=== PATIENT | male | born 1965 | race Caucasian/White ===

== ENCOUNTER 2017-01-01 10:59 | Emergency (ER) | payer SELFPAY ==
[2017-01-01] MEDS ORDERED: Lidocaine 1% w/Epinephrine 1:100K 30 ML VIAL ONE (11:36)
[2017-01-01 12:00] LABS: #Basophils 0.1 thou/uL (0.0-0.2); #Eosinphils 0.1 thou/uL (0.0-0.7); #Lymphocytes 2.9 thou/uL (1.20-3.40); #Monocytes 0.7 thou/uL (0.11-0.59); #Neutrophils 4.4 thou/uL (1.40-6.50); %Basophils 1.1 % (0.0-1.0); %Eosinophils 1.6 % (0.0-10.0); %Lymphocytes 35.1 % (21.0-51.0); %Neutrophils 54.1 % (42.0-75.0); Hemoglobin 15.3 g/dL (14.0-18.0); Mean Corpuscular Hemoglobin 29.5 pg (27.0-31.0); Mean Corpuscular Volume 86.8 fl (80.0-94.0); Platelet Count 312 thou/uL (130-400); RBC Distribution Width 11.7 % (11.5-14.5); White Blood Cell (WBC) Count 8.2 thou/uL (4.8-10.8)
[2017-01-01] MEDS ORDERED: Clindamycin/D5W 600 mg/50 ml Premix Bag ONE (12:14)
[2017-01-01] MEDS ORDERED: Adacel (T-DAP) 0.5 ML VIAL ONE (12:14)
[2017-01-01] MEDS ORDERED: Clindamycin 150 MG CAP ONE (12:24)
== END 2017-01-01 12:27 | disposition home or self-care (01) ==
LOC: BURERS 10:59
DX: M70.22 Olecranon bursitis, left elbow (principal); M13.80 Other specified arthritis, unspecified site; F17.220 Nicotine dependence, chewing tobacco, uncomplicated
CPT/HCPCS: 20605; 36415; 85025; 87070; 87205; 90471; 90715; J2001; J3490

== ENCOUNTER 2017-04-07 10:37 | Emergency (ER) | payer SELFPAY ==
--- NOTE | 2017-04-07 11:27 | RAD ---
RADIOGRAPH RIGHT ANKLE 3 VIEWS: DATE: 04/07/17. HISTORY: A 51-year-old male status post right ankle twisting injury 2 weeks ago with persistent pain. COMPARISON: None. FINDINGS: Visible only on the frontal view, there is a well-corticated approximately 9 x 6 mm ossific fragment abutting the distal tip of the lateral malleolus. This could represent an accessory ossicle (os fibu lare) or nonunited old avulsion fracture fragment. There is no evidence of acute fracture lucency. Ankle mortise is symmetrical. There are mild to moderate degenerative changes at the ankle mortise. There is soft tissue swelling anteriorly and laterally at the ankle. The talar dome is maintained. IMPRESSION: 1. No evidence of acute fracture. 2. Mild to moderate osteoarthrosis. 3. Soft tissue edema. 4. Os fibulare versus nonunited old avulsion fracture at distal tip of lateral malleolus. POS: [facility]
== END 2017-04-07 11:17 | disposition home or self-care (01) ==
LOC: BURERS 10:37
DX: S93.401A Sprain of unspecified ligament of right ankle, initial encounter (principal); M19.071 Primary osteoarthritis, right ankle and foot; F17.220 Nicotine dependence, chewing tobacco, uncomplicated; L40.50 Arthropathic psoriasis, unspecified; W17.2XXA Fall into hole, initial encounter
CPT/HCPCS: 99283

== ENCOUNTER 2018-12-17 11:06 | Emergency (ER) | payer SELFPAY | END 2018-12-17 11:31 | disposition home or self-care (01) | LOC: BURERS 11:06 | DX: L40.50 Arthropathic psoriasis, unspecified (principal); F17.220 Nicotine dependence, chewing tobacco, uncomplicated | CPT/HCPCS: 99283 ==

== ENCOUNTER 2021-05-25 11:21 | Emergency (ER) | payer SELFPAY ==
[2021-05-25] MEDS ORDERED: methylPREDNISolone Sod Succ/PF 125 MG/2 ML VIAL ONE (11:46)
== END 2021-05-25 11:55 | disposition home or self-care (01) ==
LOC: BURERS 11:21
DX: M17.0 Bilateral primary osteoarthritis of knee (principal); M19.071 Primary osteoarthritis, right ankle and foot; M70.22 Olecranon bursitis, left elbow; L40.59 Other psoriatic arthropathy; M10.9 Gout, unspecified
CPT/HCPCS: 96372; 99283; J2930